=== PATIENT | female | born 1935 | race Caucasian/White ===

== ENCOUNTER 2016-09-15 07:36 | Observation (INO) | payer OTHER, MEDICAID ==
--- NOTE | 2016-09-15 07:45 | CPEKG ---
Heart Rate: 52 RR Interval: 1154 P-R Interval: 176 QRSD Interval: 96 QT Interval: 448 QTC Interval: 417 P [place]: -11 QRS [place]: -45 T Wave [place]: 60 EKG Severity - ABNORMAL ECG - EKG Impression: SINUS RHYTHM EKG Impression: LAD, CONSIDER LEFT ANTERIOR FASCICULAR BLOCK EKG Impression: Similar to previous Electronically Signed By: Deo Cortez 15-Sep-2016 07:51:19
--- NOTE | 2016-09-15 07:48 | EDPHY ---
H & P Time Seen by Provider: 09/15/16 07:43 HPI/ROS: CHIEF COMPLAINT: Chest pain HISTORY OF PRESENT ILLNESS: Patient is an 81-year-old female who woke up this morning complaining of chest pain. It radiated to her left jaw. She denies shortness of breath but states she did feel scared. When EMS arrived they gave her a dose of aspirin and nitroglycerin and her symptoms resolved. Vital signs remained stable. 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 Patient states that she does not have a history of GERD and does not know what that would feel like but she does take Zantac daily. She states that she has had a mild cold for the last few days including a sore throat runny nose watery eyes and sneezing. The symptoms have been improving. She denies ever having any history of heart disease or heart attacks. She is a [facility] patient. REVIEW OF SYSTEMS: Constitutional: denies: chills, fever, recent illness, recent injury EENTM: denies: blurred vision, double vision, nose congestion Respiratory: denies: cough, shortness of breath Cardiac: See HPI Gastrointestinal/Abdominal: denies: abdominal pain, diarrhea, nausea, vomiting, blood streaked stools Genitourinary: denies: dysuria, frequency, hematuria, pain Musculoskeletal: denies: joint pain, muscle pain Skin: denies: lesions, rash, jaundice, bruising Neurological: denies: headache, numbness, paresthesia, tingling, dizziness, weakness Hematologic/Lymphatic: denies: blood clots, easy bleeding, easy bruising Immunologic/allergic: denies: HIV/AIDS, transplant EXAM: GENERAL: Well-appearing, mild obesity in no acute distress. HEAD: Atraumatic, normocephalic. EYES: Pupils equal round and reactive to light, extraocular movements intact, sclera anicteric, conjunctiva are normal. ENT: TMs normal, nares patent, oropharynx clear without exudates. Moist mucous membranes. NECK: Normal range of motion, supple without lymphadenopathy or JVD. LUNGS: Breath sounds clear to auscultation bilaterally and equal. No wheezes rales or rhonchi. HEART: Regular rate and rhythm without murmurs, rubs or gallops. ABDOMEN: Soft, nontender, normoactive bowel sounds. No guarding, no rebound. No masses appreciated. BACK: No CVA tenderness, no spinal tenderness, step-offs or deformities EXTREMITIES: Normal range of motion, no pitting or edema. No clubbing or cyanosis. NEUROLOGICAL: Cranial nerves II through XII grossly intact. Normal speech, normal gait. 5/5 strength, normal movement in all extremities, normal sensation PSYCH: Normal mood, normal affect. SKIN: Warm, dry, normal turgor, no visible rashes or lesions. Source: Patient, EMS, Old records Exam Limitations: No limitations - Medical/Surgical History Hx Asthma: Yes Hx Chronic Respiratory Disease: No Hx Diabetes: Yes Hx Cardiac Disease: No Hx Renal Disease: No Hx Cirrhosis: No Hx Alcoholism: No Hx HIV/AIDS: No Hx Splenectomy or Spleen Trauma: No Other PMH: HTN, ASTHMA, PRE D.M., MANY FALLS - Family History Significant Family History: No pertinent family hx - Social History Smoking Status: Never smoked Alcohol Use: Sober Drug Use: None Constitutional: Initial Vital Signs Temperature (C) 36.3 C 09/15/16 07:36 Heart Rate 55 L 09/15/16 07:36 Respiratory Rate 16 09/15/16 07:36 Blood Pressure 200/115 H 09/15/16 07:36 O2 Sat (%) 96 09/15/16 07:36 O2 Delivery Mode Room Air Allergies/Adverse Reactions: codeine Allergy (Verified 09/15/16 07:54) latex Allergy (Verified 09/15/16 07:54) lovastatin Allergy (Verified 09/15/16 07:54) simvastatin Allergy (Verified 09/15/16 07:54) beef-derived products Allergy (Uncoded 09/15/16 07:54) cottonseed oil Allergy (Uncoded 09/15/16 07:54) horse blood extract Allergy (Uncoded 09/15/16 07:54) hydromet Allergy (Uncoded 09/15/16 07:54) opiates Allergy (Uncoded 07/23/15 19:42) paraffin wax Allergy (Uncoded 07/23/15 19:42) Home Medications: Medication Instructions Recorded Acetaminophen [Tylenol 325mg (*)] 325 mg PO DAILY PRN 09/15/16 Aspirin EC [Aspirin EC 81 mg (*)] 81 mg PO DAILY 09/15/16 Atorvastatin Calcium [Lipitor 20 20 mg PO DAILY 09/15/16 mg (*)] Bisacodyl [Bisacodyl (*)] 5 mg PO DAILY PRN 09/15/16 Cholecalciferol Vit D3 [Vitamin D3 2,000 units PO DAILY 09/15/16 2000 units tab (OTC)] Herbals/Supplements -Info Only 1 ea PO DAILY 09/15/16 Isosorbide Mononitrate Unk Dose 09/15/16 Levothyroxine [Synthroid 150 mcg 150 mcg PO DAILY06 09/15/16 (*)] Lisinopril [Zestril 10 mg (*)] 10 mg PO DAILY 09/15/16 Omeprazole [Prilosec 20 mg] 20 mg PO DAILY 09/15/16 Medical Decision Making - Diagnostics EKG Interpretation: An EKG obtained and was read and documented in trace view. Please see trace view for full reading and report , sinus rhythm rate of 52, no ischemic changes , no signs of right heart strain. Imaging: X-ray: chest x-ray was obtained. I viewed the images myself on the PACS system. My interpretation of the images is: negative for acute disease . The radiologist interpretation is pending. ED Course/Re-evaluation: 9:15 a.m. the patient is pain free. Vital signs remained stable. Discussed her lab results. I spoke with [facility] who recommended she stay here. I spoke with Peggy who accepted for Dr. Tidwell. Differential Diagnosis: Partial list of the Differential diagnosis considered include but were not limited to; acute coronary disease, arrhythmia, CHF, PE and although unlikely based on the history and physical exam, I also considered dissection, pneumonia. - Data Points Laboratory Results: Laboratory Results 09/15/16 08:00 09/15/16 08:00 Departure - Departure Disposition: [facility] Inpatient Acute Clinical Impression: Chest pain Qualifiers: Chest pain type: unspecified Qualifier Code: (R07.9) Chest pain, unspecified Condition: Fair
[2016-09-15 07:51] VITALS: RESP 16
[2016-09-15 08:13] LABS: % IMMATURE GRANULYOCYTES 0.5 % (0.0-1.1); ABSOLUTE IMMATURE GRANULOCYTES 0.03 10^3/uL (0.00-0.10); ADD DIFF? NO; ADD MORPH? NO; ADD SCAN? NO; ATYPICAL LYMPHOCYTE FLAG 10 (0-99); FRAGMENT RBC FLAG 0 (0-99); HEMATOCRIT 46.8 % (38.0-47.0); HEMOGLOBIN 15.5 g/dL (12.6-16.3); LEFT SHIFT FLG 0 (0-99); LIPEMIA HEMOLYSIS FLAG 80 (0-99); MEAN CELL HEMOGLOBIN 30.6 pg (27.9-34.1); MEAN CELL HEMOGLOBIN CONCENTR. 33.1 g/dL (32.4-36.7); MEAN CELL VOLUME 92.5 fL (81.5-99.8); MEAN PLATELET VOLUME 9.5 fL (8.7-11.7); PLATELET CLUMPS FLAG 10 (0-99); PLATELET COUNT 170 10^3/uL (150-400); RED BLOOD CELL COUNT 5.06 10^6/uL (4.18-5.33); RED CELL DISTRIBUTION WIDTH 13.2 % (11.5-15.2)
[2016-09-15 08:22] LABS: ALANINE AMINOTRANSFERASE 37 IU/L (9-52); ALBUMIN 3.6 g/dL (3.5-5.0); ALKALINE PHOSPHATASE 44 IU/L (38-126); ANION GAP 12 mEq/L (8-16); ASPARTATE AMINOTRANSFERASE 31 IU/L (14-46); BILIRUBIN-CONJUGATED 0.1 mg/dL (0.0-0.5); BILIRUBIN-UNCONJUGATED 0.9 mg/dL (0.0-1.1); CALCIUM 9.1 mg/dL (8.5-10.4); CARBON DIOXIDE 28 mEq/l (22-31); CHLORIDE 105 mEq/L (97-110); CREATININE 0.9 mg/dL (0.6-1.0); GLOMERULAR FILTRATION RATE > 60; GLUCOSE 83 mg/dL (70-100); POTASSIUM 4.2 mEq/L (3.5-5.2); SODIUM 145 mEq/L (134-144); TOTAL PROTEIN 6.5 g/dL (6.3-8.2)
[2016-09-15 08:25] LABS: INR 1.12 (0.83-1.16); PROTIME(PATIENT) 14.3 SEC (12.0-15.0)
[2016-09-15 08:26] LABS: APTT 32.8 SEC (23.0-38.0)
--- NOTE | 2016-09-15 08:30 | DX ---
PA and Lateral Chest September 15, 2016 Indication: Chest pain Comparison: April 2010 and July 2015 Findings: The lungs remain well-aerated and clear. No pneumothorax, pulmonary edema, or airspace cons olidation. Heart size is upper normal for technique. The left anterior first rib is either surgically absent or congenitally small (similar to 2010). Impression: Clear lungs. No acute process.
[2016-09-15 08:34] LABS: TROPONIN I < 0.012 ng/mL (0-0.034)
--- NOTE | 2016-09-15 10:55 | PDCPHP ---
History and Physical Chief Complaint: chest and jaw pain - History of Present Illness This is a 81 yo,White,Female With history of coronary artery disease by cardiac catheterization in 2000 presented to the ED after sustaining a mechanical fall yesterday and presenting with chest and jaw pain. She awoke at 6:00 a.m.this morning with severe 9/10sharp intense pain in her left jaw and chest. EMS was called who administered aspirin and NTG with relief of symptoms. She denies having any similar symptoms in the past. Denies exertional chest pain. Denies fevers or chills. patient does not appear to be a reliable historian. She was seen with her present in the room. History Information - Allergies/Home Medication List Allergies/Adverse Reactions: codeine Allergy (Verified 09/15/16 07:54) gluten Allergy (Verified 09/15/16 07:54) lactose Allergy (Verified 09/15/16 07:54) latex Allergy (Verified 09/15/16 07:54) lovastatin Allergy (Verified 09/15/16 07:54) simvastatin Allergy (Verified 09/15/16 07:54) beef-derived products Allergy (Uncoded 09/15/16 07:54) cottonseed oil Allergy (Uncoded 09/15/16 07:54) horse blood extract Allergy (Uncoded 09/15/16 07:54) hydromet Allergy (Uncoded 09/15/16 07:54) opiates Allergy (Uncoded 07/23/15 19:42) paraffin wax Allergy (Uncoded 07/23/15 19:42) Home Medications: Acetaminophen [Tylenol 325mg (*)] 325 mg PO DAILY PRN 09/15/16 [Last Taken Unknown] Aspirin EC [Aspirin EC 81 mg (*)] 81 mg PO DAILY 09/15/16 [Last Taken Unknown] Atorvastatin Calcium [Lipitor 20 mg (*)] 20 mg PO DAILY 09/15/16 [Last Taken Unknown] Bisacodyl [Bisacodyl (*)] 5 mg PO DAILY PRN 09/15/16 [Last Taken Unknown] Cholecalciferol Vit D3 [Vitamin D3 2000 units tab (OTC)] 2,000 units PO DAILY [Last Taken Unknown] Herbals/Supplements -Info Only 1 ea PO DAILY 09/15/16 [Last Taken Unknown] Isosorbide Mononitrate Unk Dose 09/15/16 [Last Taken Unknown] Levothyroxine [Synthroid 150 mcg (*)] 150 mcg PO DAILY06 09/15/16 [Last Taken Unknown] Lisinopril [Zestril 10 mg (*)] 10 mg PO DAILY 09/15/16 [Last Taken Unknown] Omeprazole [Prilosec 20 mg] 20 mg PO DAILY 09/15/16 [Last Taken Unknown] I have personally reviewed and updated: family history, medical history, social history, surgical history - Past Medical History Additional medical history: hypothyroidism, hyperlipidemia, OA, Hypertension, CAD, dementia, PE, GERD, CKD - Surgical History Additional surgical history: hammer toe surgery, Cath in 2000 mod-severe 2-3v CAD - Social History Smoking Status: Never smoked Alcohol Use: Sober Drug Use: None Additional social history: lives independently with Review of Systems ROS: 10pt was reviewed & negative except for what was stated in HPI & below TAYLER Risk Evaluation age greater or equal to 65: yes greater or equal to 3 CAD risk factors: yes Physical Exam Temp Pulse Resp BP Pulse Ox 36.2 C 52 L 16 193/95 H 93 09/15/16 09:52 09/15/16 09:52 09/15/16 09:52 09/15/16 09:52 09/15/16 09:52 Constitutional: no apparent distress, appears nourished, not in pain Eyes: PERRL, anicteric sclera, EOMI Ears, Nose, Mouth, Throat: moist mucous membranes, hearing normal, ears appear normal, no oral mucosal ulcers Cardiovascular: regular rate and rhythym, no murmur, rub, or gallop, edema ( chronic nonpitting edema bilateral lower extremities), other ( patient has tenderness to palpation over her left chest which reproduces the pain that she felt this morning but to a lesser degree ; there is no bruising or ecchymosis) Respiratory: no respiratory distress, no rales or rhonchi, clear to auscultation Gastrointestinal: normoactive bowel sounds, soft, non-tender abdomen, no palpable masses Genitourinary: no bladder fullness, no bladder tenderness Skin: warm, normal color, no rashes or abrasions, no fluctuance, no induration, No mottled Neurologic: CN II-XII Intact, No facial droop Psychiatric: interacting appropriately, poor memory Lymph, Heme, Immunologic: no cervical LAD, no supraclavicular LAD Lab Data & Imaging Review 09/15/16 08:00 09/15/16 08:00 WBC 5.73 10^3/uL (3.80-9.50) 09/15/16 08:00 RBC 5.06 10^6/uL (4.18-5.33) 09/15/16 08:00 Hgb 15.5 g/dL (12.6-16.3) 09/15/16 08:00 Hct 46.8 % (38.0-47.0) 09/15/16 08:00 MCV 92.5 fL (81.5-99.8) 09/15/16 08:00 MCH 30.6 pg (27.9-34.1) 09/15/16 08:00 MCHC 33.1 g/dL (32.4-36.7) 09/15/16 08:00 RDW 13.2 % (11.5-15.2) 09/15/16 08:00 Plt Count 170 10^3/uL (150-400) 09/15/16 08:00 MPV 9.5 fL (8.7-11.7) 09/15/16 08:00 Neut % (Auto) 52.7 % (39.3-74.2) 09/15/16 08:00 Lymph % (Auto) 33.2 % (15.0-45.0) 09/15/16 08:00 [place] % (Auto) 11.0 % (4.5-13.0) 09/15/16 08:00 Eos % (Auto) 1.9 % (0.6-7.6) 09/15/16 08:00 Baso % (Auto) 0.7 % (0.3-1.7) 09/15/16 08:00 Nucleat RBC Rel Count 0.0 % (0.0-0.2) 09/15/16 08:00 Absolute Neuts (auto) 3.02 10^3/uL (1.70-6.50) 09/15/16 08:00 Absolute Lymphs (auto) 1.90 10^3/uL (1.00-3.00) 09/15/16 08:00 Absolute Monos (auto) 0.63 10^3/uL (0.30-0.80) 09/15/16 08:00 Absolute Eos (auto) 0.11 10^3/uL (0.03-0.40) 09/15/16 08:00 Absolute Basos (auto) 0.04 10^3/uL (0.02-0.10) 09/15/16 08:00 Absolute Nucleated RBC 0.00 10^3/uL (0-0.01) 09/15/16 08:00 Immature Gran % 0.5 % (0.0-1.1) 09/15/16 08:00 Immature Gran # 0.03 10^3/uL (0.00-0.10) 09/15/16 08:00 PT 14.3 SEC (12.0-15.0) 09/15/16 08:00 INR 1.12 (0.83-1.16) 09/15/16 08:00 APTT 32.8 SEC (23.0-38.0) 09/15/16 08:00 D-Dimer 0.28 ug/mLFEU (0.00-0.50) 09/15/16 08:00 Sodium 145 mEq/L (134-144) H 09/15/16 08:00 Potassium 4.2 mEq/L (3.5-5.2) 09/15/16 08:00 Chloride 105 mEq/L (97-110) 09/15/16 08:00 Carbon Dioxide 28 mEq/l (22-31) 09/15/16 08:00 Anion Gap 12 mEq/L (8-16) 09/15/16 08:00 BUN 19 mg/dL (7-23) 09/15/16 08:00 Creatinine 0.9 mg/dL (0.6-1.0) 09/15/16 08:00 Estimated GFR > 60 09/15/16 08:00 Glucose 83 mg/dL (70-100) 09/15/16 08:00 Calcium 9.1 mg/dL (8.5-10.4) 09/15/16 08:00 Total Bilirubin 1.0 mg/dL (0.1-1.4) 09/15/16 08:00 Conjugated Bilirubin 0.1 mg/dL (0.0-0.5) 09/15/16 08:00 Unconjugated Bilirubin 0.9 mg/dL (0.0-1.1) 09/15/16 08:00 AST 31 IU/L (14-46) 09/15/16 08:00 ALT 37 IU/L (9-52) 09/15/16 08:00 Alkaline Phosphatase 44 IU/L (38-126) 09/15/16 08:00 Troponin I < 0.012 ng/mL (0-0.034) 09/15/16 08:00 NT-Pro-B Natriuret Pep 581 pg/mL (0-450) H 09/15/16 08:00 Total Protein 6.5 g/dL (6.3-8.2) 09/15/16 08:00 Albumin 3.6 g/dL (3.5-5.0) 09/15/16 08:00 Lipase 64.0 IU/L (23-300) 09/15/16 08:00 Chest X-Ray results: no infiltrate, normal Visualized and Interpreted imaging results: Yes Visualized and Interpreted EKG results: Yes EKG Interpretation: Positive for: normal sinsus rhythm ( Her 852 beats per minute), other ( left axis deviation). Negative for: ST elevation, ST depression Assessment and Plan Assessment: This is a 81 yo,White,F presenting with: # Chest Pain: most consistent with musculoskeletal pain in the setting of recent fall and reproducible pain with palpation over the anterior chest. However, the patient does have known coronary disease. Plan: - repeat troponin at noon which will be 6 hours from initial onset of pain - Tylenol as needed for pain - I discussed further risk stratification with both the patient and her who are unsure if they have wished to proceed with any further cardiac testing at this time. Will await her repeat troponin. If the 6 hour troponin is negative I think it would be reasonable for the patient to discharge home with further outpatient follow up with her primary care provider and tourism radio presenter at [facility]
[2016-09-15] MEDS ORDERED: ACETAMINOPHEN 325 MG TAB PO PRN (11:12)
[2016-09-15 13:45] VITALS: BP 103/65; PULSE 65; TEMP 97.9; O2SAT 95
--- NOTE | 2016-09-15 14:04 | GDS ---
[f rep st] DISCHARGE SUMMARY DISCHARGE DIAGNOSES: 1. Chest wall pain, likely musculoskeletal in etiology due to recent fall. 2. History of coronary artery disease. 3. History of hypothyroidism. 4. Hyperlipidemia. 5. Dementia. 6. History of pulmonary embolus. 7. Gastroesophageal reflux disease. 8. History of chronic kidney disease. COURSE OF STAY BY PROBLEM: Chest pain: The patient was placed in the EAC[facility], where she has had no fur ther chest or jaw pain. Troponin 6 hours after the onset of her pain was negative. On exam, her aaron n seems to be quite atypical, given the fact that it is reproducible with palpation over the anterior chest wall. Prior to discharge, I offered the patient further observation and diagnostic workup, including a nucl ear stress test. The patient is unsure if she would want any intervention in the setting of flow-machado iting coronary artery disease, and would like to further discuss risk stratification with her primary care provider at [place]. DISCHARGE MEDICATIONS: Please refer to discharge medication reconciliation in [facility]. DISCHARGE INSTRUCTIONS: The patient will be discharged from the hospital, where she should follow up with her primary care provider in the next week. She should seek medical attention if she develops any exertional chest pain or worsening of her symptoms. /[id number]/MODL
[2016-09-16] MEDS ORDERED: LEVOTHYROXINE 150 MCG TAB PO SCH (06:00)
[2016-09-16] MEDS ORDERED: ASPIRIN EC 81 MG TAB PO SCH (09:00)
[2016-09-16] MEDS ORDERED: PANTOPRAZOLE SODIUM 40 MG TAB PO SCH (09:00)
[2016-09-16] MEDS ORDERED: NON-FORMULARY NEW DRUG (Omeprazole [Prilosec 20 Mg] 20 MG) PO SCH (09:00)
[2016-09-16] MEDS ORDERED: LISINOPRIL 10 MG TAB PO SCH (09:00)
[2016-09-16] MEDS ORDERED: ATORVASTATIN CALCIUM 20 MG TAB PO SCH (09:00)
== END 2016-09-15 14:31 | disposition home or self-care (01) ==
LOC: EDUNIT# → F1N 09:36
PROVIDERS: ADMIT Family Medicine; ATTEND Family Medicine
DX: R07.89 Other chest pain (principal); E03.9 Hypothyroidism, unspecified; I10 Essential (primary) hypertension; R73.03 Prediabetes; I25.10 Atherosclerotic heart disease of native coronary artery without angina pectoris; Z86.711 Personal history of pulmonary embolism; K21.9 Gastro-esophageal reflux disease without esophagitis; Z85.89 Personal history of malignant neoplasm of other organs and systems
CPT/HCPCS: 71020; 93005; G0378

== ENCOUNTER 2017-06-26 20:00 | Inpatient (IN) | payer OTHER, MEDICAID ==
--- NOTE | 2017-06-26 20:19 | EDPHY ---
H & P Time Seen by Provider: 06/26/17 20:18 HPI/ROS: Chief complaint. Fall HPI. 82-year-old female lives at home with had a mechanical fall today. Here by EMS. Apparently the history is she did not strike her head however the patient complains of pain to the top of her head and she does have a bump. Unsure about neck pain. Unsure about loss of consciousness. She also has abrasion to the left hand. She lives at home with her . No chest discomfort or trouble breathing. No back pain abdominal pain. Again injury to the left hand with abrasion. ROS Constitutional. no fever/chills, no weakness Eyes. no problems with vision ENT. no sore throat, no nasal drainage Cardiovascular. no chest pain Respiratory. no shortness of breath, no cough Abdominal. no abdominal pain, no nausea/vomiting, no diarrhea . no problems urinating MS. possible neck pain Skin. Abrasion left hand Lymph. no swollen glands Neuro. Head pain Past Medical/Surgical History: Past medical history significant for hypothyroid, dyslipidemia, hypertension, coronary artery disease, vulvar neoplasia, DVT, GERD, depression history of head injury, sleep apnea, prediabetes, dementia Social History: , nonsmoker, no alcohol Smoking Status: Never smoked Physical Exam: General Appearance: Alert well-developed female mild distress vital signs stable Eyes: Pupils equal and round no pallor or injection. ENT, no hemotympanum or Read sign no oral pharyngeal or dental trauma. There is a bump to the top of her head. Respiratory: There are no retractions, lungs are clear to auscultation. Cardiovascular: Regular rate and rhythm. Gastrointestinal: Abdomen is soft and nontender, no masses, bowel sounds normal. Neurological: Awake and alert, sensory and motor exams grossly normal. Skin: Abrasion left hand on the dorsum Musculoskeletal: Possible neck pain Extremities symmetrical, full range of motion. Psychiatric: Patient is oriented only to person Constitutional: Initial Vital Signs Temperature (C) 36.7 C 06/26/17 20:03 Heart Rate 64 06/26/17 20:03 Respiratory Rate 16 06/26/17 20:03 Blood Pressure 178/87 H 06/26/17 20:03 O2 Sat (%) 97 06/26/17 20:03 O2 Delivery Mode Room Air Allergies/Adverse Reactions: codeine Allergy (Verified 09/15/16 07:54) gluten Allergy (Verified 06/26/17 20:08) lactose Allergy (Verified 06/26/17 20:08) latex Allergy (Verified 09/15/16 07:54) lovastatin Allergy (Verified 09/15/16 07:54) simvastatin Allergy (Verified 09/15/16 07:54) beef-derived products Allergy (Uncoded 09/15/16 07:54) cottonseed oil Allergy (Uncoded 09/15/16 07:54) horse blood extract Allergy (Uncoded 09/15/16 07:54) hydromet Allergy (Uncoded 09/15/16 07:54) opiates Allergy (Uncoded 07/23/15 19:42) paraffin wax Allergy (Uncoded 07/23/15 19:42) Home Medications: Medication Instructions Recorded Acetaminophen [Tylenol 325mg (*)] 325 mg PO DAILY PRN 09/15/16 Aspirin EC [Aspirin EC 81 mg (*)] 81 mg PO DAILY 09/15/16 Atorvastatin Calcium [Lipitor 20 20 mg PO DAILY 09/15/16 mg (*)] Bisacodyl [Bisacodyl (*)] 5 mg PO DAILY PRN 09/15/16 Cholecalciferol Vit D3 [Vitamin D3 2,000 units PO DAILY 09/15/16 2000 units tab (OTC)] Herbals/Supplements -Info Only 1 ea PO DAILY 09/15/16 Isosorbide Mononitrate Unk Dose 09/15/16 Levothyroxine [Synthroid 150 mcg 150 mcg PO DAILY06 09/15/16 (*)] Lisinopril [Zestril 10 mg (*)] 10 mg PO DAILY 09/15/16 Omeprazole [Prilosec 20 mg] 20 mg PO DAILY 09/15/16 Amoxicillin/Clavulanate Pot 06/26/17 Citalopram 06/26/17 Isosorbide Mononitrate 06/26/17 Medical Decision Making - Diagnostics Imaging Results: Imaging Impressions Cervical Spine CT 06/26/17 20:29 Impression: Elderly brain with atrophy and probable white matter small vessel disease. Scalp hematoma with no intracranial hemorrhage identified. CT Cervical Spine Without Contrast History: Trauma. Technique: Multislice helical CT through the cervical spine without contrast from the skull base to T1. Soft tissue and bone evaluation is performed. Sagittal and coronal reconstructions are obtained and reviewed. Dose reduction techniques were utilized. Findings: Cervical alignment is anatomic. No fracture or dislocation is identified. The relationship between skull base and C1 is normal. The C1-C2 articulation is normal. The odontoid process is normal. The cervical thoracic junction is normal. Soft tissue window evaluation does not show evidence of epidural or prevertebral hematoma. Degenerative changes are seen with multilevel disk space loss and bony hypertrophy similar in appearance to the July 23, 2015 study. Impression: 1. Cervical spine negative for fracture. 2. Degenerative changes are seen. Results called and discussed with HAIDER RIOS M.D. on 06/26/2017 at 21:13 Hand X-Ray 06/26/17 20:29 Impression: 1. Negative for fracture. 2. Osseous demineralization and degenerative changes are noted Head CT 06/26/17 20:29 Impression: Elderly brain with atrophy and probable white matter small vessel disease. Scalp hematoma with no intracranial hemorrhage identified. CT Cervical Spine Without Contrast History: Trauma. Technique: Multislice helical CT through the cervical spine without contrast from the skull base to T1. Soft tissue and bone evaluation is performed. Sagittal and coronal reconstructions are obtained and reviewed. Dose reduction techniques were utilized. Findings: Cervical alignment is anatomic. No fracture or dislocation is identified. The relationship between skull base and C1 is normal. The C1-C2 articulation is normal. The odontoid process is normal. The cervical thoracic junction is normal. Soft tissue window evaluation does not show evidence of epidural or prevertebral hematoma. Degenerative changes are seen with multilevel disk space loss and bony hypertrophy similar in appearance to the July 23, 2015 study. Impression: 1. Cervical spine negative for fracture. 2. Degenerative changes are seen. Results called and discussed with HAIDER RIOS M.D. on 06/26/2017 at 21:13 CT head and cervical spine show no evidence of acute fracture. X-ray left hand interpreted by me is negative for fracture Procedures: IV normal saline ED Course/Re-evaluation: Patient's and daughter arrive. They are concerned about her frequent falls and increasing dementia. They feel that they are to the point of not any longer being able to care for the patient at home. They request admission Differential Diagnosis: I considered skull fracture, intracranial bleeding, cervical spine injury, left hand fracture. Patient has failure to thrive and increasing dementia with frequent falls - Data Points Laboratory Results: Laboratory Results 06/26/17 20:40 06/26/17 20:40 06/26/17 06/26/17 20:40 20:40 WBC 6.89 10^3/uL 10^3/uL (3.80-9.50) RBC 4.80 10^6/uL 10^6/uL (4.18-5.33) Hgb 15.0 g/dL g/dL (12.6-16.3) Hct 44.8 % % (38.0-47.0) MCV 93.3 fL fL (81.5-99.8) MCH 31.3 pg pg (27.9-34.1) MCHC 33.5 g/dL g/dL (32.4-36.7) RDW 13.9 % % (11.5-15.2) Plt Count 165 10^3/uL 10^3/uL (150-400) MPV 9.8 fL fL (8.7-11.7) Neut % (Auto) 70.3 % % (39.3-74.2) Lymph % (Auto) 17.4 % % (15.0-45.0) [place] % (Auto) 9.9 % % (4.5-13.0) Eos % (Auto) 1.3 % % (0.6-7.6) Baso % (Auto) 0.4 % % (0.3-1.7) Nucleat RBC Rel Count 0.0 % % (0.0-0.2) Absolute Neuts (auto) 4.84 10^3/uL 10^3/uL (1.70-6.50) Absolute Lymphs (auto) 1.20 10^3/uL 10^3/uL (1.00-3.00) Absolute Monos (auto) 0.68 10^3/uL 10^3/uL (0.30-0.80) Absolute Eos (auto) 0.09 10^3/uL 10^3/uL (0.03-0.40) Absolute Basos (auto) 0.03 10^3/uL 10^3/uL (0.02-0.10) Absolute Nucleated RBC 0.00 10^3/uL 10^3/uL (0-0.01) Immature Gran % 0.7 % % (0.0-1.1) Immature Gran # 0.05 10^3/uL 10^3/uL (0.00-0.10) Sodium 137 mEq/L mEq/L (134-144) Potassium 4.5 mEq/L mEq/L (3.5-5.2) Chloride 103 mEq/L mEq/L (97-110) Carbon Dioxide 29 mEq/l mEq/l (22-31) Anion Gap 5 mEq/L L mEq/L (8-16) BUN 17 mg/dL mg/dL (7-23) Creatinine 0.9 mg/dL mg/dL (0.6-1.0) Estimated GFR > 60 Glucose 96 mg/dL mg/dL (70-100) Calcium 10.1 mg/dL mg/dL (8.5-10.4) Departure - Departure Disposition: [facility] Inpatient Acute Clinical Impression: Failure to thrive in adult Contusion of head Qualifiers: Encounter type: initial encounter Contusion of head detail: scalp Qualified Code(s): S00.03XA - Contusion of scalp, initial encounter Condition: Fair Referrals: Patient,NotPresent [Unknown] - As per Instructions
[2017-06-26 20:48] LABS: % IMMATURE GRANULYOCYTES 0.7 % (0.0-1.1); ABSOLUTE IMMATURE GRANULOCYTES 0.05 10^3/uL (0.00-0.10); ADD DIFF? NO; ADD MORPH? NO; ADD SCAN? NO; ATYPICAL LYMPHOCYTE FLAG 10 (0-99); FRAGMENT RBC FLAG 0 (0-99); HEMATOCRIT 44.8 % (38.0-47.0); LEFT SHIFT FLG 0 (0-99); LIPEMIA HEMOLYSIS FLAG 80 (0-99); MEAN CELL HEMOGLOBIN 31.3 pg (27.9-34.1); MEAN CELL HEMOGLOBIN CONCENTR. 33.5 g/dL (32.4-36.7); MEAN CELL VOLUME 93.3 fL (81.5-99.8); MEAN PLATELET VOLUME 9.8 fL (8.7-11.7); PLATELET CLUMPS FLAG 30 (0-99); PLATELET COUNT 165 10^3/uL (150-400); RED CELL DISTRIBUTION WIDTH 13.9 % (11.5-15.2)
[2017-06-26 21:01] LABS: ANION GAP 5 mEq/L (8-16); CALCIUM 10.1 mg/dL (8.5-10.4); CARBON DIOXIDE 29 mEq/l (22-31); CHLORIDE 103 mEq/L (97-110); CREATININE 0.9 mg/dL (0.6-1.0); GLOMERULAR FILTRATION RATE > 60; GLUCOSE 96 mg/dL (70-100); POTASSIUM 4.5 mEq/L (3.5-5.2); SODIUM 137 mEq/L (134-144)
[2017-06-26] MEDS ORDERED: ACETAMINOPHEN 325 MG TAB PO PRN (23:34)
[2017-06-26] MEDS ORDERED: ONDANSETRON DISINTEGRATING 4 MG TAB PO PRN (23:34)
[2017-06-26] MEDS ORDERED: ONDANSETRON 4 MG/2 ML VIAL IVP PRN (23:34)
--- NOTE | 2017-06-27 00:22 | PDGENHP ---
History and Physical - Chief Complaint Falls - History of Present Illness 82 yo F w/ dementia, HTN, and hypothyroidism presents after numerous falls at home. Most of the history obtain from and daughter. Per family, patient has exhibited a steady decline in functioning since being diagnosed with dementia in 2012. Over the last month, her functioning has declined sharply leading to multiple falls, including one on the day of admission where she hit her head and hurt her hand. Additionally, daughter describes frequent hallucinations including "men in trees" and "bulldozers in the garden". Upon the time of my evaluation the patient seems to be perseverating on needing to use the bathroom, which apparently she has been saying for the last few hours. History Information - Allergies/Home Medication List Allergies/Adverse Reactions: codeine Allergy (Verified 09/15/16 07:54) gluten Allergy (Verified 06/26/17 20:08) lactose Allergy (Verified 06/26/17 20:08) latex Allergy (Verified 09/15/16 07:54) lovastatin Allergy (Verified 09/15/16 07:54) simvastatin Allergy (Verified 09/15/16 07:54) beef-derived products Allergy (Uncoded 09/15/16 07:54) cottonseed oil Allergy (Uncoded 09/15/16 07:54) horse blood extract Allergy (Uncoded 09/15/16 07:54) hydromet Allergy (Uncoded 09/15/16 07:54) opiates Allergy (Uncoded 07/23/15 19:42) paraffin wax Allergy (Uncoded 07/23/15 19:42) Home Medications: Acetaminophen [Tylenol 325mg (*)] 325 mg PO DAILY PRN 09/15/16 [Last Taken Unknown] Aspirin EC [Aspirin EC 81 mg (*)] 81 mg PO DAILY 09/15/16 [Last Taken Unknown] Atorvastatin Calcium [Lipitor 20 mg (*)] 20 mg PO DAILY 09/15/16 [Last Taken Unknown] Bisacodyl [Bisacodyl (*)] 5 mg PO DAILY PRN 09/15/16 [Last Taken Unknown] Cholecalciferol Vit D3 [Vitamin D3 2000 units tab (OTC)] 2,000 units PO DAILY [Last Taken Unknown] Herbals/Supplements -Info Only 1 ea PO DAILY 09/15/16 [Last Taken Unknown] Isosorbide Mononitrate Unk Dose 09/15/16 [Last Taken Unknown] Levothyroxine [Synthroid 150 mcg (*)] 150 mcg PO DAILY06 09/15/16 [Last Taken Unknown] Lisinopril [Zestril 10 mg (*)] 10 mg PO DAILY 09/15/16 [Last Taken Unknown] Omeprazole [Prilosec 20 mg] 20 mg PO DAILY 09/15/16 [Last Taken Unknown] Amoxicillin/Clavulanate Pot 06/26/17 [Last Taken Unknown] Citalopram 06/26/17 [Last Taken Unknown] Isosorbide Mononitrate 06/26/17 [Last Taken Unknown] I have personally reviewed and updated: family history, medical history - Past Medical History dementia, hypertension Additional medical history: hypothyroidism, hyperlipidemia, OA, Hypertension, CAD, dementia, PE, GERD, CKD - Surgical History Additional surgical history: hammer toe surgery, Cath in 2000 mod-severe 2-3v CAD - Family History Additional family history: Asked, unable to provide - Social History Smoking Status: Never smoked Additional social history: lives independently with Review of Systems Review of Systems: ROS: 10pt was reviewed & negative except for what was stated in HPI & below Physical Exam Physical Exam: Temp Pulse Resp BP Pulse Ox 36.6 C 74 16 180/100 H 94 06/26/17 23:41 06/26/17 23:41 06/26/17 23:41 06/26/17 23:41 06/26/17 23:41 Constitutional: no apparent distress, appears nourished Eyes: PERRL, anicteric sclera Ears, Nose, Mouth, Throat: moist mucous membranes, no oral mucosal ulcers Cardiovascular: regular rate and rhythym, no murmur, rub, or gallop Respiratory: no respiratory distress, no rales or rhonchi Gastrointestinal: normoactive bowel sounds, soft, non-tender abdomen Skin: warm, normal color, other (Scalp hematoma, multiple small abrasions on L hand) Musculoskeletal: full muscle strength, no muscle tenderness Neurologic: CN II-XII Intact, other (A&Ox2) Psychiatric: flat affect, poor insight, poor memory Lab Data & Imaging Review 06/26/17 20:40 06/26/17 20:40 WBC 6.89 10^3/uL (3.80-9.50) 06/26/17 20:40 RBC 4.80 10^6/uL (4.18-5.33) 06/26/17 20:40 Hgb 15.0 g/dL (12.6-16.3) 06/26/17 20:40 Hct 44.8 % (38.0-47.0) 06/26/17 20:40 MCV 93.3 fL (81.5-99.8) 06/26/17 20:40 MCH 31.3 pg (27.9-34.1) 06/26/17 20:40 MCHC 33.5 g/dL (32.4-36.7) 06/26/17 20:40 RDW 13.9 % (11.5-15.2) 06/26/17 20:40 Plt Count 165 10^3/uL (150-400) 06/26/17 20:40 MPV 9.8 fL (8.7-11.7) 06/26/17 20:40 Neut % (Auto) 70.3 % (39.3-74.2) 06/26/17 20:40 Lymph % (Auto) 17.4 % (15.0-45.0) 06/26/17 20:40 [place] % (Auto) 9.9 % (4.5-13.0) 06/26/17 20:40 Eos % (Auto) 1.3 % (0.6-7.6) 06/26/17 20:40 Baso % (Auto) 0.4 % (0.3-1.7) 06/26/17 20:40 Nucleat RBC Rel Count 0.0 % (0.0-0.2) 06/26/17 20:40 Absolute Neuts (auto) 4.84 10^3/uL (1.70-6.50) 06/26/17 20:40 Absolute Lymphs (auto) 1.20 10^3/uL (1.00-3.00) 06/26/17 20:40 Absolute Monos (auto) 0.68 10^3/uL (0.30-0.80) 06/26/17 20:40 Absolute Eos (auto) 0.09 10^3/uL (0.03-0.40) 06/26/17 20:40 Absolute Basos (auto) 0.03 10^3/uL (0.02-0.10) 06/26/17 20:40 Absolute Nucleated RBC 0.00 10^3/uL (0-0.01) 06/26/17 20:40 Immature Gran % 0.7 % (0.0-1.1) 06/26/17 20:40 Immature Gran # 0.05 10^3/uL (0.00-0.10) 06/26/17 20:40 Sodium 137 mEq/L (134-144) 06/26/17 20:40 Potassium 4.5 mEq/L (3.5-5.2) 06/26/17 20:40 Chloride 103 mEq/L (97-110) 06/26/17 20:40 Carbon Dioxide 29 mEq/l (22-31) 06/26/17 20:40 Anion Gap 5 mEq/L (8-16) L 06/26/17 20:40 BUN 17 mg/dL (7-23) 06/26/17 20:40 Creatinine 0.9 mg/dL (0.6-1.0) 06/26/17 20:40 Estimated GFR > 60 06/26/17 20:40 Glucose 96 mg/dL (70-100) 06/26/17 20:40 Calcium 10.1 mg/dL (8.5-10.4) 06/26/17 20:40 Imaging Review: CT Head w/ significant atrophy and scalp hematoma but no acute intracranial abnormality. C-spine imaging unremarkable. Hand XR without fracture. Assessment & Plan Assessment: 82 yo F w/ advanced dementia presents with multiple falls and failure to thrive at home. Plan: 1. Advanced dementia - Initially diagnosed in 2012, now with significant difficulty functioning and complicated by multiple falls and frequent hallucinations. Initial laboratory work-up unremarkable. - PT/OT/CM consults for evaluation and likely placement - Brief reversible etiology work up: UA, TSH, B12, RPR 2. Recurrent falls - Significant deconditioning complicated by severe dementia. She lives independently with elderly and they are having a very difficult time achieving ADLs. - PT/OT - Check Vit D level 3. Hypertension - Continue home medications 4. Hypothyroid - Check TSH, continue LTX. 5. Hx of CAD - On ASA, statin. 6. Hx of PE - No longer on anticoagulation. Diet - Regular Code - Full Ppx - LMWH, low dose Dispo - Admit to inpatient status noting inability to function safely at home, recurrent falls, and need for placement in safer environment.
[2017-06-27 05:05] LABS: % IMMATURE GRANULYOCYTES 0.5 % (0.0-1.1); ABSOLUTE IMMATURE GRANULOCYTES 0.03 10^3/uL (0.00-0.10); ADD DIFF? NO; ADD MORPH? NO; ADD SCAN? NO; ATYPICAL LYMPHOCYTE FLAG 0 (0-99); FRAGMENT RBC FLAG 0 (0-99); HEMATOCRIT 43.7 % (38.0-47.0); HEMOGLOBIN 14.8 g/dL (12.6-16.3); LEFT SHIFT FLG 0 (0-99); LIPEMIA HEMOLYSIS FLAG 90 (0-99); MEAN CELL HEMOGLOBIN 31.4 pg (27.9-34.1); MEAN CELL HEMOGLOBIN CONCENTR. 33.9 g/dL (32.4-36.7); MEAN CELL VOLUME 92.8 fL (81.5-99.8); MEAN PLATELET VOLUME 9.8 fL (8.7-11.7); PLATELET CLUMPS FLAG 0 (0-99); PLATELET COUNT 154 10^3/uL (150-400); RED BLOOD CELL COUNT 4.71 10^6/uL (4.18-5.33); RED CELL DISTRIBUTION WIDTH 13.7 % (11.5-15.2)
[2017-06-27 05:18] LABS: ANION GAP 8 mEq/L (8-16); CALCIUM 9.7 mg/dL (8.5-10.4); CARBON DIOXIDE 27 mEq/l (22-31); CHLORIDE 105 mEq/L (97-110); CREATININE 0.8 mg/dL (0.6-1.0); GLOMERULAR FILTRATION RATE > 60; GLUCOSE 83 mg/dL (70-100); POTASSIUM 3.8 mEq/L (3.5-5.2); SODIUM 140 mEq/L (134-144)
[2017-06-27 05:36] LABS: VITAMIN D 25-HYDROXY TOTAL 34.7 ng/mL (30.0-100.0)
--- NOTE | 2017-06-27 08:11 | PDMN ---
Medical Necessity Medical necessity: Patient meets INPT criteria per MD note and CMS guidelines: advanced dementia w/hallucinations and significant difficulty functioning/ unsafe current environment with recurrent falls/; hypertension; hx CAD, PE. Anticipated LOS > 2 midnights for PT/OT evals, ongoing BP mgmt., unsafe to DC to current environment.
[2017-06-27] MEDS ORDERED: ENOXAPARIN 30 MG/0.3 ML SYR SC SCH (09:00)
[2017-06-27 09:48] LABS: COLOR PALE YELLOW; LEUKOCYTE ESTERASE,URINE 1+ (NEGATIVE); NITRITE,URINE NEGATIVE (NEGATIVE)
--- NOTE | 2017-06-27 16:35 | HOSPPROG ---
Hospitalist Progress Note Assessment/Plan: The patient is a 82-year-old female with PMH dementia who was admitted for frequent falls, worsening delirium. ASSESSMENT/PLAN: Encephalopathy, likely 2/2 the progressively worsening dementia Hypothyroidism Hypertension History of PE History of coronary artery disease. Discussed the case with the patient's over the phone. Explained that there are no test results to account for the patient's worsening encephalopathy over the course of the last month or so. He admitted that her confusion has increased over the last few years. I believe this is progressively worsening dementia. She is not safe at home. Recommended a look into [facility] facilities with memory care units. Also left a message for his [id number] Aniyah to discuss the plan further. This patient is new to me. Reviewed patient's chart/records for this visit. Case management consult for placement. VTE prophylaxis: Lovenox Code Status: Full code Status: Inpatient for greater than 2 midnight stay. Disposition: [facility] with discharge anticipated after 3 midnights to memory care facility ____ SUBJECTIVE: Today patient is confused. OBJECTIVE: Physical Exam: General: The patient is an elderly female who is alert and in no acute distress. HEENT: normocephalic, extraocular movements intact, conjunctivae clear. Mucous membranes moist. Neck: trachea midline, no visible masses. CV: +S1/S2, RRR, no MRG. Resp: unlabored, CTAB no RRW. Abd: soft and nondistended. Bowel sounds present. Musculoskeletal: Normal muscle tone/bulk. Neuro: cranial nerves II XII grossly intact. Intact gross motor and sensory function. Psych: Confused. Skin: Mild pallor. Heme/lymph: No peripheral edema at bilateral lower extremities. Labs/Imaging/Other Tests: Personally reviewed/interpreted. Objective: Vital Signs Temp Pulse Resp BP Pulse Ox 36.6 C 71 18 162/84 H 90 L 06/27/17 12:47 06/27/17 12:47 06/27/17 12:47 06/27/17 12:47 06/27/17 12:47 Laboratory Results 06/27/17 04:55 06/27/17 04:55 06/26/17 06/27/17 06/28/17 05:59 05:59 05:59 Intake Total 150 Output Total 350 Balance 150 -350 - Time Spent With Patient Time Spent with Patient: greater than 35 minutes Time Spent with Patient: Greater than 35 minutes spent on this patients care, greater than 50% of time spent counseling, educating, and coordinating care regarding the above mentioned plan. ICD10 Worksheet Patient Problems: Problems Problem Status Onset Contusion of head Acute Failure to thrive in adult Acute Chest pain Acute Sprain of ankle, left Acute Syncope Acute Traumatic ecchymosis of left knee Acute Traumatic ecchymosis of right knee Acute
--- NOTE | 2017-06-27 17:10 | ASMTCMCOM ---
CM Note CM Note Notes: Patient brought here with family because of FTT and frequest falls but patient has significant dementia and is a [facility] patient. C/M attempted to reach [facility] repatriation today but was unable to reach them. Case management will continue to try try to find out whether [facility] plans to transfer patient back to them. Case management will follow. Date Signed: 06/27/2017 05:07 PM Electronically Signed By:SU Regan
[2017-06-27] MEDS: HALOPERIDOL LACT 5 MG/ML INJ IVP PRN (21:26)
[2017-06-28] MEDS ORDERED: ENOXAPARIN 40 MG/0.4 ML SYR SC SCH (09:00)
[2017-06-28] MEDS: LISINOPRIL 20 MG TAB PO SCH (10:42)
[2017-06-28] MEDS: ISOSORBIDE MONONITRATE 30 MG TAB.SR PO SCH (10:42)
--- NOTE | 2017-06-28 12:11 | WOCRNPDOC ---
WOCRN Advanced Assessment Note - Skin Integrity Problem, Advanced Assess Bilateral Second Toe Dressing Type: Non-Bordered Foam, Other Other Dressing Type: Medipore tape Dressing Description: Clean/Dry, Intact Exudate Amount: None Exudate Characteristic(s): None Integumentary Issue Intervention: Dressing Applied Kristen Wound Tissue: Thin, Dry Kristen Wound Swelling: None Site Odor: None Skin Integrity Problem Comment: Patient admitted to hospital w/ dressings on her bilateral 2nd toes. Note in H&P says these dressings were applied by in home tutor, who changes dressings M/W/F. I removed these dressings to assess the toes, and found they were comprised of foam dressing and tape. Both 2nd toes have intact, dried callous at the distal aspect, no fluctuance noted. There is some rust-colored tissue noted on both toes, which could be an indication of a hemorrhagic callous. Both toes appear to have some degree of hammer toe deformity, which could account for increased pressure and subsequent callous formation. Periwound tissues are cyanotic, and both feet are cool to the touch. I was, however, able to palpate a DP pulse bilaterally. Callouses are both dry and stable, so I applied a dressing to relieve pressure and keep site dry. As this is an ongoing issue for which patient receives tx in the outpatient setting , Wound Care does not need to follow ongoing. Report given to resaw feeder Sravani. Gluteal Cleft Dressing Type: Open to Air Exudate Amount: None Exudate Characteristic(s): None Integumentary Issue Intervention: Barrier Cream Applied (Calazime) Kristen Wound Tissue: Blanching Kristen Wound Swelling: None Wound Bed Color: Red, White Site Measurement - Head-to-Toe Length X Width X Depth (cm): [id number] Skin Integrity Problem Comment: Raw, denuded skin extending from anus out through intergluteal cleft where the skin touches, indicative of incontinence- associated dermatitis. Skin is most effected immediately adjacent to anus, where there is some partial-thickness tissue loss observed. The remainder of the intergluteal cleft has some slightly raised areas of scarring, indicative that this is a long-term, chronic problem. Recommend application of Calazime throughout the intergluteal cleft BID and w/ pericare. Also, patient should be kept brief-free, and turned side to side to allow skin to air out when possible. Report given to resaw feeder Kelly.
--- NOTE | 2017-06-28 17:30 | ASMTCMCOM ---
CM Note CM Note Notes: Chart reviewed. Pt has dementia. She is status post fall and has been living with her . Spoke with daughter regarding placement options and limitations r/t demographics of [employer] and [employer]. Her daughter is asking if she can obtain a letter of incompetency through our hospitalist. She is asking if she can drop her mothers [employer] and utilize medicare instead. I assured her that we would provide all of the options available given the situation. CM to follow. Date Signed: 06/28/2017 05:30 PM Electronically Signed By:Melissa Escalante RN
--- NOTE | 2017-06-28 17:32 | HOSPPROG ---
Hospitalist Progress Note Assessment/Plan: The patient is a 82-year-old female with PMH dementia who was admitted for frequent falls, worsening delirium. ASSESSMENT/PLAN: Encephalopathy, likely 2/2 the progressively worsening dementia Hypothyroidism Hypertension History of PE History of coronary artery disease. Recent wounds of toes Gluteal cleft sore -Wound care today for toes. Pt has received 10days of Augmentin prior to admission and was receiving home health wound care. filtering machine tender helper reported calluses of toes. Discussed the case with the patient's , daughter, and son in law in person. Explained that there are no test results to account for the patient's worsening encephalopathy over the course of the last month or so. They admitted that her confusion has increased over the last few years, but especially worse in the last couple months. I believe this is progressively worsening dementia. She is not safe at home. They agree w/ transfer to memory care unit. Case management consult for placement. VTE prophylaxis: Lovenox Code Status: Full code Status: Inpatient for greater than 2 midnight stay. Disposition: [facility] with discharge anticipated after 3 midnights to memory care facility - may go as soon as 06/30. ____ SUBJECTIVE: Today patient is confused. OBJECTIVE: Physical Exam: General: The patient is an elderly female who is alert and in no acute distress. HEENT: normocephalic, extraocular movements intact, conjunctivae clear. Mucous membranes moist. Neck: trachea midline, no visible masses. Resp: unlabored. Abd: soft and nondistended. Bowel sounds present. Musculoskeletal: Normal muscle tone/bulk. Neuro: cranial nerves II XII grossly intact. Intact gross motor and sensory function. Psych: Confused. Skin: Mild pallor. Heme/lymph: No peripheral edema at bilateral lower extremities. Labs/Imaging/Other Tests: Personally reviewed/interpreted. Objective: Vital Signs Temp Pulse Resp BP Pulse Ox 36.3 C 73 20 144/82 H 96 06/28/17 16:20 06/28/17 16:20 06/28/17 16:20 06/28/17 16:20 06/28/17 16:20 Laboratory Results 06/27/17 04:55 06/27/17 04:55 06/27/17 06/28/17 06/29/17 05:59 05:59 05:59 Intake Total 150 480 650 Output Total 350 Balance 150 130 650 - Time Spent With Patient Time Spent with Patient: greater than 35 minutes Time Spent with Patient: Greater than 35 minutes spent on this patients care, greater than 50% of time spent counseling, educating, and coordinating care regarding the above mentioned plan. - Pending Discharge Pending Discharge Within 24 Hours: Yes Pending Discharge Date: 06/29/17 Pending Discharge Time: 11:00 ICD10 Worksheet Patient Problems: Problems Problem Status Onset Contusion of head Acute Failure to thrive in adult Acute Chest pain Acute Sprain of ankle, left Acute Syncope Acute Traumatic ecchymosis of left knee Acute Traumatic ecchymosis of right knee Acute
[2017-06-29] MEDS: HALOPERIDOL LACT 5 MG/ML INJ IVP PRN ×2 (01:02→06:52)
[2017-06-29] MEDS: CITALOPRAM 20 MG TAB PO SCH (09:52)
[2017-06-29] MEDS: ENOXAPARIN 40 MG/0.4 ML SYR SC SCH (10:01)
[2017-06-29] MEDS: LISINOPRIL 20 MG TAB PO SCH ×2 (10:04→17:09)
[2017-06-29] MEDS: ISOSORBIDE MONONITRATE 30 MG TAB.SR PO SCH ×2 (10:05→17:08)
--- NOTE | 2017-06-29 12:00 | HOSPPROG ---
Hospitalist Progress Note Assessment/Plan: 82 y.o female presenting with worsening encephalopathy # Acute Encephalopathy- reversible causes of confusion ruled out including normal urinalysis, B12, RPR and TSH CT head(personally reviewed and interpreted) without acute stroke or bleeds Deficits suspected 2/2 the progressively worsening dementia - family aware of diagnosis and prognosis oxygen saturations 92% on room air - continue celexa - cont supportive care - working on placement to memory care unit- family in agreement # Hypothyroidism- TSH 3.3 on admit - cont home synthroid # Hypertension SBP fluctuating from 140-180's - cont home lisinopril and nitrate # History of coronary artery disease- no acute CP - cont ASA - holding statin in setting of acute worsening of mental status # Recent wounds of toes and Gluteal cleft sore- wound care following and treating #History of PE - no current anticoagulation # proph- Lovenox # disposition- greater than 2 midnights the patient is requiring group home facility/memory care placement I have discussed the case with the RN-we will monitor blood pressure and continue current meds in spite of 1 isolated low measurement this morning Subjective: denies pain Objective: Vital Signs Temp Pulse Resp BP Pulse Ox 36.9 C 61 16 92/63 L 92 06/29/17 08:13 06/29/17 09:52 06/29/17 08:13 06/29/17 10:05 06/29/17 09:52 Laboratory Results 06/27/17 04:55 06/27/17 04:55 06/28/17 06/29/17 06/30/17 05:59 05:59 05:59 Intake Total 480 1100 Output Total 350 700 Balance 130 400 - Physical Exam Constitutional: appears nourished Eyes: anicteric sclera Ears, Nose, Mouth, Throat: moist mucous membranes Cardiovascular: regular rate and rhythym Respiratory: no respiratory distress Gastrointestinal: normoactive bowel sounds Genitourinary: no bladder fullness Skin: normal color Musculoskeletal: No asymmetric calves Neurologic: No AAOx3 Psychiatric: encephalopathic Lymph, Heme, Immunologic: no cervical LAD ICD10 Worksheet Patient Problems: Problems Problem Status Onset Contusion of head Acute Failure to thrive in adult Acute Chest pain Acute Sprain of ankle, left Acute Syncope Acute Traumatic ecchymosis of left knee Acute Traumatic ecchymosis of right knee Acute
--- NOTE | 2017-06-29 16:59 | ASMTCMCOM ---
CM Note CM Note Notes: Attempted to contact patients but unable to reach him. Made contact with patients daughter Juanita Daley [phone] to discuss plans for when patient is discharged. Also contacted [facility] [phone] and provided daughter number for [facility] at [phone]. Daughter indicated their first choice is [facility] where she had already had spoken with [facility] who said they might be able to take patient. Daughter was going to call [facility] again so that she could tour the facility. Case management will speak with daughter tomorrow morning to follow up on families choices. Family understands that they need to have plan soon for discharge. C/M will follow. Date Signed: 06/29/2017 04:58 PM Electronically Signed By:SU Regan
[2017-06-30] MEDS: LEVOTHYROXINE 150 MCG TAB PO SCH (06:07)
[2017-06-30] MEDS: ISOSORBIDE MONONITRATE 30 MG TAB.SR PO SCH (10:15)
[2017-06-30] MEDS: LISINOPRIL 20 MG TAB PO SCH (10:15)
[2017-06-30] MEDS: ASPIRIN EC 81 MG TAB PO SCH (10:15)
[2017-06-30] MEDS: CITALOPRAM 20 MG TAB PO SCH (10:16)
[2017-06-30] MEDS: ENOXAPARIN 40 MG/0.4 ML SYR SC SCH (10:18)
--- NOTE | 2017-06-30 16:37 | ASMTCMCOM ---
CM Note CM Note Notes: Spoke with patients daughter Dawna, who said she had toured [facility] and has now changed her mind about them and does not want her mother to go there. She said she went to [facility] and spoke with Bianka in admissions. She says this is where she would like her mother to be discharged to. C[facility] contacted [facility] Reminded RN that patient needs 24 hours without a sitter before being transferred. Will wait see if [facility] can accept. Case management will continue to follow. Date Signed: 06/30/2017 04:36 PM Electronically Signed By:SU Regan
--- NOTE | 2017-06-30 17:07 | HOSPPROG ---
Hospitalist Progress Note Assessment/Plan: 82 y.o female presenting with worsening encephalopathy # Acute Encephalopathy- reversible causes of confusion ruled out including normal urinalysis, B12, RPR and TSH CT head (personally reviewed and interpreted) without acute stroke or bleeds Deficits suspected 2/2 the progressively worsening dementia - family aware of diagnosis and prognosis - cognitive status remains poor oxygen saturations 95% on room air - continue celexa - cont supportive care - working on placement to memory care unit- family in agreement # Hypothyroidism- TSH 3.3 on admit - cont home synthroid # Hypertension SBP fluctuating from 140-180's - cont home lisinopril and nitrate # Hand pain - none reported today -hand xray (personally reviewed and interpreted) no acute fractures # History of coronary artery disease- no acute CP - cont ASA - holding statin in setting of acute worsening of mental status # Recent wounds of toes and Gluteal cleft sore- wound care following and treating # History of PE - no current anticoagulation # proph- Lovenox # disposition- greater than 2 midnights the patient is requiring [facility] facility/memory care placement I have discussed the case with CM - continue to investigate memory care opportunities for this patient Subjective: denies pain Objective: Vital Signs Temp Pulse Resp BP Pulse Ox 36.3 C 71 16 133/87 H 92 06/30/17 15:00 06/30/17 15:30 06/30/17 15:30 06/30/17 15:30 06/30/17 15:30 Laboratory Results 06/27/17 04:55 06/27/17 04:55 06/29/17 06/30/17 07/01/17 05:59 05:59 05:59 Intake Total 1100 450 200 Output Total 700 Balance 400 450 200 - Physical Exam Constitutional: chronically ill appearing Eyes: anicteric sclera Ears, Nose, Mouth, Throat: moist mucous membranes Cardiovascular: regular rate and rhythym Respiratory: no respiratory distress Gastrointestinal: normoactive bowel sounds Genitourinary: no bladder fullness Skin: normal color Musculoskeletal: No asymmetric calves Neurologic: No AAOx3 Psychiatric: agitated Lymph, Heme, Immunologic: no cervical LAD ICD10 Worksheet Patient Problems: Problems Problem Status Onset Contusion of head Acute Failure to thrive in adult Acute Chest pain Acute Sprain of ankle, left Acute Syncope Acute Traumatic ecchymosis of left knee Acute Traumatic ecchymosis of right knee Acute
[2017-07-01] MEDS: LEVOTHYROXINE 150 MCG TAB PO SCH (05:21)
[2017-07-01] MEDS: ENOXAPARIN 40 MG/0.4 ML SYR SC SCH (09:00)
[2017-07-01] MEDS: ISOSORBIDE MONONITRATE 30 MG TAB.SR PO SCH (09:01)
[2017-07-01] MEDS: ASPIRIN EC 81 MG TAB PO SCH (09:01)
[2017-07-01] MEDS: LISINOPRIL 20 MG TAB PO SCH (09:01)
[2017-07-01] MEDS: CITALOPRAM 20 MG TAB PO SCH (09:01)
[2017-07-01] MEDS ORDERED: PNEUMOC 13-VAL CONJ-DIP CRM/PF 0.5 ML SYR IM ONE (09:34)
--- NOTE | 2017-07-01 10:57 | HOSPPROG ---
Hospitalist Progress Note Assessment/Plan: 82 y.o female presenting with worsening encephalopathy # Acute Encephalopathy- reversible causes of confusion ruled out including normal urinalysis, B12, RPR and TSH CT head - without acute stroke or bleeds Deficits suspected 2/2 the progressively worsening dementia - family aware of diagnosis and prognosis - cognitive status remains poor oxygen saturations 91% on room air - continue celexa - cont supportive care - working on placement to memory care unit- family in agreement # Hypothyroidism- TSH 3.3 on admit - cont home synthroid # Hypertension SBP fluctuating from 110-140's- would not want tighter control 2/ 2 to her age - cont home lisinopril and nitrate - creatinine normal # Falls - CT cervical spine (personally reviewed and interpreted) no acute fractures - pt is not ambulating independently in the hospital - cont bed alarm - cont nursing support supervision per current plan # Hand pain - some reported today -hand xray (persoanlly reviewed and interpreted) no acute fractures patient with IV and tape also on this hand/arm - continue to monitor # History of coronary artery disease- no acute CP - cont ASA - holding statin in setting of acute worsening of mental status # Recent wounds of toes and Gluteal cleft sore- wound care following and treating # History of PE - no current anticoagulation # proph- Lovenox # disposition- greater than 2 midnights the patient is requiring [place] [facility]memory care placement I have discussed the case with RN- patient has been far less agitated overnight - sitter no longer bedside Subjective: reporting left hand pain Objective: Vital Signs Temp Pulse Resp BP Pulse Ox 36.6 C 63 16 146/88 H 91 L 07/01/17 07:24 07/01/17 07:24 07/01/17 07:24 07/01/17 09:01 07/01/17 07:24 Laboratory Results 06/27/17 04:55 06/27/17 04:55 06/30/17 07/01/17 07/02/17 05:59 05:59 05:59 Intake Total 450 685 Output Total 100 Balance 450 585 - Physical Exam Constitutional: chronically ill appearing Eyes: anicteric sclera Ears, Nose, Mouth, Throat: dry mucous membranes Cardiovascular: regular rate and rhythym, systolic murmur Respiratory: no respiratory distress Gastrointestinal: normoactive bowel sounds Genitourinary: no bladder fullness Skin: normal color Musculoskeletal: No asymmetric calves Neurologic: No AAOx3 Psychiatric: No agitated Lymph, Heme, Immunologic: no cervical LAD ICD10 Worksheet Patient Problems: Problems Problem Status Onset Contusion of head Acute Failure to thrive in adult Acute Chest pain Acute Sprain of ankle, left Acute Syncope Acute Traumatic ecchymosis of left knee Acute Traumatic ecchymosis of right knee Acute
--- NOTE | 2017-07-01 12:13 | ASMTCMCOM ---
CM Note CM Note Notes: Bianka from [facility] visited pt today to evaluate for a [facility] Medicaid bed. Pt currently has [employer] Medicaid for HCBS services. Pt needs a new ULTC for nursing facility. Filled out and faxed the ULTC to [facility]. Approval process could take 48-72 hours. C/M to follow. Date Signed: 07/01/2017 12:13 PM Electronically Signed By:Franchesca Barros LCSW
[2017-07-01] MEDS ORDERED: NS 1,000 ML IV ONE (17:13)
[2017-07-02] MEDS: LEVOTHYROXINE 150 MCG TAB PO SCH (05:59)
--- NOTE | 2017-07-02 10:34 | HOSPPROG ---
Hospitalist Progress Note Assessment/Plan: 82 y.o female presenting with worsening encephalopathy # Acute Hypotension - overnight - SBP 80's - pt lethargic when sitting up - given NS bolus and straight catheter placed - BS 126 patient has significant fluctuation in BP from 80-90's - 180-190's - suspect some underlying autonomic dysfunction oxygen saturations 90% on room air - holding lisinopril this am - monitor on Isosorbide alone # acute on chronic urinary retention- bladder scan with > 800cc overnight - prn straight catheter # Acute Encephalopathy- reversible causes of confusion ruled out including normal urinalysis, B12, RPR and TSH CT head - without acute stroke or bleeds Deficits suspected 2/2 the progressively worsening dementia - family aware of diagnosis and prognosis - cognitive status remains poor - continue Celexa - cont supportive care - working on placement to memory care unit- family in agreement # Hypothyroidism- TSH 3.3 on admit - cont home synthroid # Hypertension - chronic - cont home nitrate - creatinine normal - holding lisinopril as above # Falls - CT cervical spine (personally reviewed and interpreted) no acute fractures - pt is not ambulating independently in the hospital - cont bed alarm - cont nursing support supervision per current plan # Hand pain - some reported today -hand xray (personally reviewed and interpreted) no acute fractures patient with IV and tape also on this hand/arm - continue to monitor # History of coronary artery disease- no acute CP - cont ASA - holding statin in setting of acute worsening of mental status # Recent wounds of toes and Gluteal cleft sore- wound care following and treating # History of PE - no current anticoagulation # proph- Lovenox # disposition- greater than 2 midnights the patient is requiring [facility] facility/[facility] care placement I have discussed the case with RN- patient mental status markedly improved this am - BP normalized with IVF - monitor intake Subjective: wants to go home Objective: Vital Signs Temp Pulse Resp BP Pulse Ox 36.6 C 71 18 182/110 H 90 L 07/02/17 08:25 07/02/17 08:25 07/02/17 08:25 07/02/17 08:25 07/02/17 08:25 Laboratory Results 06/27/17 04:55 06/27/17 04:55 07/01/17 07/02/17 07/03/17 05:59 05:59 05:59 Intake Total 685 350 Output Total 100 750 Balance 585 -400 - Physical Exam Constitutional: chronically ill appearing Eyes: anicteric sclera Ears, Nose, Mouth, Throat: moist mucous membranes Cardiovascular: regular rate and rhythym Respiratory: no respiratory distress Gastrointestinal: normoactive bowel sounds, soft, non-tender abdomen Genitourinary: no bladder fullness Skin: warm, normal color Musculoskeletal: No asymmetric calves Neurologic: No AAOx3 Psychiatric: No agitated Lymph, Heme, Immunologic: no cervical LAD ICD10 Worksheet Patient Problems: Problems Problem Status Onset Contusion of head Acute Failure to thrive in adult Acute Chest pain Acute Sprain of ankle, left Acute Syncope Acute Traumatic ecchymosis of left knee Acute Traumatic ecchymosis of right knee Acute
[2017-07-02] MEDS: CITALOPRAM 20 MG TAB PO SCH (10:59)
[2017-07-02] MEDS: ENOXAPARIN 40 MG/0.4 ML SYR SC SCH (10:59)
[2017-07-02] MEDS: ISOSORBIDE MONONITRATE 30 MG TAB.SR PO SCH (10:59)
[2017-07-02] MEDS: ASPIRIN EC 81 MG TAB PO SCH (10:59)
--- NOTE | 2017-07-02 16:39 | ASMTCMCOM ---
CM Note CM Note Notes: Ni Rashid, pt's [facility] case manager specialist ([phone]) called today to state that she should be able to finish up pt's paperwork late tomorrow morning and she will be able to DC in the afternoon. C/M dex continue to follow. Date Signed: 07/02/2017 04:39 PM Electronically Signed By:Franchesca Barros LCSW
[2017-07-03] MEDS: LEVOTHYROXINE 150 MCG TAB PO SCH (04:00)
[2017-07-03 08:27] VITALS: RESP 16
[2017-07-03] MEDS: CITALOPRAM 20 MG TAB PO SCH (09:25)
[2017-07-03] MEDS: ISOSORBIDE MONONITRATE 30 MG TAB.SR PO SCH (09:25)
[2017-07-03] MEDS: ENOXAPARIN 40 MG/0.4 ML SYR SC SCH (09:26)
[2017-07-03] MEDS: ASPIRIN EC 81 MG TAB PO SCH (09:26)
[2017-07-03 12:20] VITALS: BP 131/82; PULSE 72; TEMP 98.1; O2SAT 91
--- NOTE | 2017-07-03 13:30 | PDIAF ---
- Diagnosis Diagnosis: dementia Code Status: Full Code - Medication Management Discharge Medications: Medications to Continue on Transfer Aspirin EC [Aspirin EC 81 mg (*)] 81 mg PO DAILY 09/15/16 [Last Taken Unknown] Cholecalciferol Vit D3 [Vitamin D3 2000 units tab (OTC)] 2,000 units PO DAILY [Last Taken Unknown] Levothyroxine [Synthroid 150 mcg (*)] 150 mcg PO DAILY06 09/15/16 [Last Taken Unknown] Omeprazole [Prilosec 20 mg] 20 mg PO HS 09/15/16 [Last Taken Unknown] Citalopram Hydrobromide [Citalopram HBr] 20 mg PO DAILY 06/27/17 [Last Taken Unknown] Isosorbide Mononitrate [Imdur 30 mg (*)] 1 tab PO DAILY 06/27/17 [Last Taken Unknown] Cyanocobalamin [Vitamin B12 (*)] 100 mcg PO DAILY 06/28/17 [Last Taken Unknown] Herbals/Supplements -Info Only 1 ea PO DAILY 06/28/17 [Last Taken Unknown] Multivitamins [Multivitamin (*)] 1 each PO DAILY 06/28/17 [Last Taken Unknown] Vitamin B Complex [Super B-50 Complex] 1 each PO DAILY 06/28/17 [Last Taken Unknown] Acetaminophen [Tylenol 325mg (*)] 650 mg PO Q4HRS PRN tab 07/03/17 [Last Taken Unknown] Discharge Medications: Refer to the Discharge Home Medication list for PRN reason. - Orders Services needed: Registered Nurse, Physical Therapy, Occupational Therapy Diet Recommendation: no restrictions on diet Diet Texture: Regular Texture Diet Braun: No Additional: please bladder scan BID and straight cath for > 800 ml urine - Follow Up Care Current Providers and Referrals: Patient,NotPresent [Unknown] - As per Instructions
--- NOTE | 2017-07-03 14:12 | ASMTCMCOM ---
CM Note CM Note Notes: Pt ready for DC today. [facility] completed ULTC and faxed it to [facility]. [facility] Stretcher transport arranged for 3:00. Final orders faxed. Spoke with dtr Ellen to update her on DC plan. Date Signed: 07/03/2017 02:11 PM Electronically Signed By:Franchesca Barros LCSW
--- NOTE | 2017-07-03 16:02 | ASDISCHSUM ---
Discharge Information Plan Status:SNF Medically Cleared to Leave: Discharge Date:07/03/2017 03:19 PM CM D/C Disposition:Rehab [facility] ADT D/C Disposition:Retirement Facility Projected Discharge Date:07/03/2017 11:00 AM Transportation at D/C: Discharge Delay Reason: Follow-Up Date:07/03/2017 11:00 AM Discharge Slot: Final Diagnosis: Placement Information Referral Type:*Group Home/SNF Referral ID:[id number] Provider Name:[facility] Address 1:[address] Address 2: City:[place] Selection Factors: State:[place] Patient Contact Information Contact Name:TAMMY Relationship: Address:[address] Work Phone: [facility]:[place] Alternate Phone: State/Zip Code:[place] [address] Email: Financial Information Financial Class:Medicare Advantage Plans Primary Plan Desc:[employer] MEDICARE ADV IP Primary Plan Number:[id number] Secondary Plan Desc:[place] Secondary Plan Number:[id number] Assessment Information [facility] CM Progress Note CM Note CM Note Notes: Patient brought here with family because of FTT and frequest falls but patient has significant dementia and is a [facility] patient. C/M attempted to reach [facility] today but was unable to reach them. Case management will continue to try try to find out whether [facility] plans to transfer patient back to [facility]. Case management will follow. Date Signed: 06/27/2017 05:07 PM Electronically Signed By:SU Regan [facility] CM Progress Note CM Note CM Note Notes: Chart reviewed. Pt has dementia. She is status post fall and has been living with her . Spoke with daughter regarding placement options and limitations r/t demographics of [employer] and [employer]. Her daughter is asking if she can obtain a letter of incompetency through our hospitalist. She is asking if she can drop her mothers [employer] and utilize medicare instead. I assured her that we would provide all of the options available given the situation. CM to follow. Date Signed: 06/28/2017 05:30 PM Electronically Signed By:Melissa Escalante RN [facility] Progress Note CM Note CM Note Notes: Attempted to contact patients but unable to reach him. Made contact with patients daughter Juanita Daley [phone] to discuss plans for when patient is discharged. Also contacted [facility] C/M [phone] and provided daughter number for [facility] at [phone]. Daughter indicated their first choice is [facility] where she had already had spoken with [facility] who said they might be able to take patient. Daughter was going to call [facility] again so that she could tour the facility. Case management will speak with daughter tomorrow morning to follow up on families choices. Family understands that they need to have plan soon for discharge. C/M will follow. Date Signed: 06/29/2017 04:58 PM Electronically Signed By:SU Regan [facility] Progress Note CM Note CM Note Notes: Spoke with patients daughter Dawna, who said she had toured [facility] and has now changed her mind about them and does not want her mother to go there. She said she went to [facility] and spoke with Bianka in admissions. She says this is where she would like her mother to be discharged to. C/M contacted [facility] and [facility] Reminded RN that patient needs 24 hours without a sitter before being transferred. Will wait see if [facility] can accept. Case management will continue to follow. Date Signed: 06/30/2017 04:36 PM Electronically Signed By:SU Regan [facility] CM Progress Note CM Note CM Note Notes: Bianka from [facility] visited pt today to evaluate for a long term acute care registered nurse Medicaid bed. Pt currently has [employer] Medicaid for HCBS services. Pt needs a new ULTC for nursing facility. Filled out and faxed the ULTC to [facility]. Approval process could take 48-72 hours. C/M to follow. Date Signed: 07/01/2017 12:13 PM Electronically Signed By:Franchesca Barros LCSW [facility] CM Progress Note CM Note CM Note Notes: Ni Rashid, pt's [facility] window caser ([phone]) called today to state that she should be able to finish up pt's paperwork late tomorrow morning and she will be able to DC in the afternoon. C/M dex continue to follow. Date Signed: 07/02/2017 04:39 PM Electronically Signed By:Franchesca Barros LCSW [facility] CM Progress Note CM Note CM Note Notes: Pt ready for DC today. [facility] completed ULTC and faxed it to [facility]. [facility] Stretcher transport arranged for 3:00. Final orders faxed. Spoke with dtr Ellen to update her on DC plan. Date Signed: 07/03/2017 02:11 PM Electronically Signed By:Franchesca Barros LCSW Intervention Information Intervention Type:*IM-Signed Date of Service:07/03/2017 03:31 PM Patient Type:Inpatient Staff Member:Adela Farris Hours: Discipline: Severity: Comment:
--- NOTE | 2017-07-03 17:27 | GDS ---
[f rep st] DISCHARGE SUMMARY DISCHARGE DIAGNOSES: Include: 1. Acute encephalopathy, thought secondary to progressive dementia. 2. Hypertension, labile. 3. Hypothyroidism. 4. Recurrent falls. 5. Coronary artery disease. 6. Gluteal and toe skin wounds. 7. History of pulmonary embolism, completed anticoagulation. HISTORY OF PRESENT ILLNESS: This is an 82-year-old female, brought in by family for progressive conf usion, agitation and falls. For details of the patient's initial presentation, please see the Histor y and Physical dated 06/26/2017. CONSULTATIVE SERVICES: None. PROCEDURES: On 06/26/2017, patient had a noncontrast CT of the head that showed no acute intracrania l findings. On 06/26/2017, patient had a cervical spine CT that showed no acute osseous abnormalitie s. On 06/26/2017, patient had an x-ray of the hand on the left that showed no acute bony abnormality . HOSPITAL COURSE: By issue: 1. Acute encephalopathy, presumed secondary to progressing cognitive decline with dementia. The pat ient had a thorough evaluation for reversible causes of dementia, all of which were negative, includi ng infectious, metabolic, chronic syphilis. The patient was provided supportive care and Case Manage ment spent excellent resources to find the patient a memory care unit. She will be discharged for in creased support in the outpatient setting. 2. Labile hypertension, suspect compounded or complicated by autonomic dysfunction from lying in bed without activity. The patient frequently has very elevated blood pressures in the 190s to 200s. On treatment, we intermittently saw drops into the high 80s and 90s. She was originally treated with 2 antihypertensives, but we were often seeing this drop in blood pressure. She is being discharged on only 1 of her home antihypertensives. On this single agent, we are seeing blood pressures ranging b etween 130 and 170 systolic; I think this is a sweet spot clinically for this patient. She should no t have additional agents added. 3. Intermittent urinary retention. I do not believe this is a new diagnosis for this patient. Rath er than placing an indwelling catheter, we recommend intermittent bladder scanning with straight cath ing as needed for retention above 800 mL. 4. Coronary artery disease. The patient was continued on her cardiac regimen. She did not have leyla st pain complaints during this hospital stay. 5. Frequent falls. Suspect this is related to her progressive cognitive changes. Patient was impul sive with her movements. She did complain of left hand pain on admission. Imaging of both her spine and her left hand were negative for any acute bony abnormalities. MEDICATIONS AT THE TIME OF TRANSFER: Please reference the med rec printed on 07/03/2017. FOLLOWUP APPOINTMENTS: Include with her memory care center. PENDING STUDIES: At the time of this dictation, are none. TIME SPENT: I spent greater than 30 minutes in the planning and coordination of this discharge. /[id number]/MODL
== END 2017-07-03 15:19 | DRG 884 ==
LOC: EDUNIT# → OBSVTOIN 22:38 → INTOOBSV 22:38 → F1N 06-27 00:56
PROVIDERS: ADMIT Student in an Organized Health Care Education/Training Program; ATTEND Student in an Organized Health Care Education/Training Program
DX: F03.90 Unspecified dementia, unspecified severity, without behavioral disturbance, psychotic disturbance, mood disturbance, and anxiety (principal); I10 Essential (primary) hypertension; E03.9 Hypothyroidism, unspecified; I25.10 Atherosclerotic heart disease of native coronary artery without angina pectoris; R29.6 Repeated falls; R33.9 Retention of urine, unspecified; E78.5 Hyperlipidemia, unspecified; S00.03XA Contusion of scalp, initial encounter; W19.XXXA Unspecified fall, initial encounter; Z23 Encounter for immunization
CPT/HCPCS: 82607-90; 97110-GP; 97162-GP; 97166-GO; 97530-GP; 97535-GO; G0009; G8978-GP-CL; G8979-GP-CJ; G8987-GO-CM; G8988-GO-CK; J1650